=== PATIENT | female | born 1975 | race Caucasian/White ===

== ENCOUNTER 2023-01-25 11:51 | Emergency (ER) | payer OTHER ==
[~2023-01-25] VITALS: Ht 157.5 cm; Wt 74.8 kg
--- NOTE | 2023-01-25 12:08 | NUR ---
Patient to ER bed 5 to gown for evaluation. Side rails up.
--- NOTE | 2023-01-25 12:08 | NUR ---
urine sent to lab for ua pending order
[2023-01-25 12:10] VITALS: BP_SYST 114
--- NOTE | 2023-01-25 12:10 | NUR ---
MD DR ANGELES AT BEDSIDE
[2023-01-25 12:16] LABS: BILIRUBIN,URINE NEGATIVE (NEGATIVE); BLOOD, URINE NEGATIVE (NEGATIVE); CLARITY/URINE CLEAR (CLEAR); COLOR,URINE YELLOW (YELLOW); GLUCOSE,URINE NEGATIVE (NEGATIVE); KETONES,URINE NEGATIVE (NEGATIVE); LEUKOCYTE ESTERASE ,URINE NEGATIVE (NEGATIVE); NITRITE, URINE NEGATIVE (NEGATIVE); PROTEIN URINE NEGATIVE (NEGATIVE); UROBILINOGEN,URINE 0.2 (0.2-1.0)
[2023-01-25 12:39] LABS: BASOPHILS % (AUTO) 0.7 % (0.0-2.0); EOSINOPHILS % (AUTO) 0.5 % (0.0-4.0); HEMATOCRIT 40.5 % (36-48); HEMOGLOBIN 13.9 g/dL (12.0-16.0); LYMPHOCYTES # (AUTO) 1.8 K/uL (1.0-5.5); LYMPHOCYTES % (AUTO) 29.7 % (20.5-51.5); MEAN CORPUSCULAR HEMOGLOBIN 32 pg (27-31); MEAN CORPUSCULAR HGB CONC 34 % (32-36); MEAN CORPUSCULAR VOLUME 94 fL (79.0-98.0); MONOCYTES # (AUTO) 0.3 K/uL (0.0-1.0); MONOCYTES % (AUTO) 4.9 % (1.7-9.3); NEUTROPHILS % (AUTO) 64.2 % (40.0-70.0); PLATELET COUNT (AUTO) 266 K/uL (130-430); RED BLOOD CELL COUNT(AUTO) 4.34 MIL/uL (4.2-6.2); RED CELL DISTRIBUTION WIDTH 13.7 % (9.0-15.0); WHITE BLOOD COUNT (AUTO) 6.2 K/uL (4.8-10.8)
--- NOTE | 2023-01-25 12:39 | NUR ---
PT BIB AWAKE AND ALERT AOX4, NOB OR DISTRESS. PT C/O PAIN TO ABDOMIN X2 DAYS. 8/10 PAIN. PT STATES IT RADIATES TO THE BACK. PT STATS SHE HAS URINE FREQUENCY, BUT NO PAIN URINATING. PT DENIES HX, SX IN [place] 2 YEARS AGO.
[2023-01-25 12:40] LABS: ANION GAP 9 (5-15); CALCIUM 8.9 mg/dL (8.4-11.0); CHLORIDE 101 mmol/L (98-107); CREATININE 0.79 mg/dL (0.55-1.30); GFR AFRICAN AMERICAN 99 mL/min (>90); GLUCOSE 112 mg/dL (70-99); UREA NITROGEN, BLOOD 12 mg/dL (8-21)
[2023-01-25 12:44] LABS: ALANINE AMINOTRANSFERASE 96 U/L (12-78); ALBUMIN 4.1 g/dL (3.4-4.8); AMYLASE 63 U/L (0-100); ASPARTATE AMINOTRANSFERASE 44 U/L (10-37); LIPASE 85 U/L (73-393); TOTAL BILIRUBIN 0.4 mg/dL (0.0-1.0)
[2023-01-25 12:45] LABS: C-REACTIVE PROTEIN QUANT < 0.2 mg/dL (0-0.5)
--- NOTE | 2023-01-25 13:04 | NUR ---
PT TAKEN TO CT
[2023-01-25 13:26] LABS: ACETONE, SERUM NEGATIVE (NEGATIVE)
[2023-01-25] MEDS ORDERED: TRAM50TA2 PO (14:12)
[2023-01-25] MEDS ORDERED: IBUP-1969 PO (14:12)
--- NOTE | 2023-01-25 14:30 | NUR ---
Patient given written and verbal discharge instructions and verbalizes understanding. ER MD DR ANGELES discussed with patient the results and treatment provided. Patient in stable condition. ID arm band removed. IV catheter removed intact and dressing applied, no active bleeding. Rx of MOTRIN, TRAMADOL given. Patient educated on pain management and to follow up with PMD. Pain Scale 3/10. Opportunity for questions provided and answered. Medication side effect fact sheet provided.
[2023-01-25 16:29] VITALS: BP_SYST 116
== END 2023-01-25 14:30 | disposition home or self-care (01) ==
LOC: SED 11:51
DX: R10.9 Unspecified abdominal pain (principal); R30.0 Dysuria; R35.0 Frequency of micturition; Z79.899 Other long term (current) drug therapy
CPT/HCPCS: 36415; 76376; 80053; 81003; 81025; 82009; 82150; 83605; 83690; 84703; 85025; 86140; 99284